=== PATIENT | male | born 1970 | race African-American/Black ===

== ENCOUNTER 2020-06-09 17:36 | Emergency (ER) | payer BC ==
[~2020-06-09] VITALS: Ht 188 cm; Wt 108.7 kg
--- NOTE | 2020-06-09 17:41 | PHYS DOC ---
Past History Past Medical History: High Cholesterol, Hypertension General Adult HPI: HPI: ".. I ve not been feeling well the last few days... cough, short of breath, fevers, chills.. I hurt all over like flu...I got this abdomen pain.. too.. had it off and on the past couple months.. my doctor thinks I got gastritis...or something.. that maybe need a scope.. 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 Cover mainly the local area.. but to make it [place] far [place] as [facility].. " Patient is a 50 year old male who presents with above hx complaints upper epigastric, myalgia, arthralgia, malaise, cough, dyspnea, fever and chills the last few days. Has had interment abdomen pain felt to be gastritis by primary physician. No tx trauma. No history of specific ill contacts but does travel extensively in the [facility] area where he drives a truck for [employer]. Patient does have a history of hypertension elevated cholesterol. Does not get a flu shot every year. No specific history immunosuppression. Normally follows with , of ,[place]. Review of Systems: Review of Systems: Constitutional: Complains of fever or chills Eyes: Denies change in visual acuity HENT: Complains of nasal congestion or sore throat Respiratory: Complains of cough or shortness of breath Cardiovascular: Complains of chest pain. Denies edema GI: Complains of epigastric abdominal pain, nausea,. Denies vomiting, bloody stools or diarrhea : Denies dysuria Musculoskeletal: Complains of generalized upper body myalgia, back pain and joint pain Integument: Denies rash Neurologic: Denies headache, focal weakness or sensory changes Endocrine: Denies polyuria or polydipsia Lymphatic: Denies swollen glands Psychiatric: Denies depression or anxiety Heart Score: HEART Score for Chest Pain: HEART Score for Chest Pain Response (Comments) Value History Slighlty/Non-Suspicious 0 ECG Normal 0 Age >45 - < 65 1 Risk Factors 1 or 2 Risk Factors 1 Troponin < Normal Limit 0 Total 2 Risk Factors: Risk Factors: DM, Current or recent (<one month) smoker, HTN, HLP, family history of CAD, obesity. Risk Scores: Score 0 - 3: 2.5% MACE over next 6 weeks - Discharge Home Score 4 - 6: 20.3% MACE over next 6 weeks - Admit for Clinical Observation Score 7 - 10: 72.7% MACE over next 6 weeks - Early Invasive Strategies Family History: Family History: Noncontributory Current Medications: Current Meds: See nursing for home meds Allergies: Allergies: Allergic to penicillin Physical Exam: PE: Constitutional: Moderate acute distress, non-toxic appearance. [] HENT: Normocephalic, atraumatic, bilateral external ears normal, oropharynx moist, no oral exudates, nose swollen turbinates and clear rhinorrhea Eyes: PERRLA, EOMI, conjunctiva normal, no discharge. [] Neck: Normal range of motion, no tenderness, supple, no stridor. [] Cardiovascular:Heart rate regular rhythm, no murmur. PMI slightly to the left Lungs & Thorax: Bilateral breath sounds equal at apex on auscultation [] Abdomen: Bowel sounds normal, soft, upper epigastric tenderness, no masses, no pulsatile masses. Declines rectal exam at this time. No hx of tarry stools. Skin: Warm, dry, no erythema, no rash. [] Back: No tenderness, no CVA tenderness. [] Extremities: No tenderness, no cyanosis, no clubbing, ROM intact, no edema. No cording appreciated Neurologic: Alert and oriented X 3, normal motor function, normal sensory function, no focal deficits noted. [] Psychologic: Affect anxious , judgement normal, mood normal. [] EKG: EKG: My interpretation EKG shows a sinus rhythm at 64 bpm. No findings of acute STEMI of contralateral changes. [] Radiology/Procedures: Radiology/Procedures: [address] [address] IMAGING REPORT Signed PATIENT: YUVAL LAZARO ACCOUNT: [id number] : 1970 LOCATION: ER AGE: 50 SEX: M EXAM STATUS: REG ER ORD. PHYSICIAN: GINETTE SEGOVIA MD REASON: OMNI 350,85ML IV.CHEST PAIN, DYSPNEA, COUGH.NO INJURY OR SX PROCEDURE: CT ANGIOGRAPHY CHEST CT ANGIOGRAPHY CHEST History: Chest pain. Dyspnea. Technique: CT of the chest was performed with intravenous contrast. PE protocol. Maximum intensity projection coronal and sagittal reconstructions were performed. Exposure: One or more of the following individualized dose reduction techniques were utilized for this examination: 1. Automated exposure control 2. Adjustment of the mA and/or kV according to patient size 3. Use of iterative reconstruction technique. Comparison: None Findings: Chest: No pulmonary emboli although evaluation is mildly degraded by respiratory motion within the bilateral lower lobes and contrast timing overall. No aortic aneurysm or dissection. No pathologic lymphadenopathy. No consolidation or pleural effusion. Calcified left lower lobe pulmonary nodule, likely prior granulous disease. 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 Impression: 1. No pulmonary embolism allowing for motion and contrast timing degradation. 2. Focal dissection within the celiac artery. No occlusion. Electronically signed by: Thomas Palm DO (06/09/2020 10:40 PM) [facility] DICTATED AND SIGNED BY: THOMAS PALM DO DATE: 06/09/202239 CC: GINETTE SEGOVIA MD; PCP,NO ~ [][place] [address] IMAGING REPORT Signed PATIENT: YUVAL LAZARO ACCOUNT: [id number] : 1970 LOCATION: ER AGE: 50 SEX: M EXAM STATUS: REG ER ORD. PHYSICIAN: GINETTE SEGOVIA MD REASON: cough,fever,dyspnea PROCEDURE: PORTABLE CHEST 1V PORTABLE CHEST 1V History: Reason: cough,fever,dyspnea / Spl. Instructions: / History: Comparison: None. Findings: No consolidation or pleural effusion. Normal heart size. No pneumothorax. Impression: 1. No acute cardiopulmonary process. Electronically signed by: Thomas Palm DO (06/09/2020 7:42 PM) [facility] DI[facility]ATED AND SIGNED BY: THOMAS PALM DO DATE: 06/09/201941 CC: GINETTE SEGOVIA MD; PCP,NO ~ Course & Med Decision Making: Course & Med Decision Making Pertinent Labs and Imaging studies reviewed. (See chart for details) Discussed presentation, testing and tx. plan with Dr. Scruggs. Plan transfer to [facility] for possible GI , Vascular or Procedural Radiology to evaluate the celiac artery dissection without thrombus. COVID ordered in event possible surgical intervention and symptoms. Impression: 1. Cough, Fever, myalgia, arthralgia malaise-viral syndrome 2. Abdomen pain 3. 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 Chest Pain 6. Hypernatremia 146 [] Dragon Disclaimer: Dragon Disclaimer: This electronic medical record was generated, in whole or in part, using a voice recognition dictation system. Departure Departure: Disposition: 01 HOME/RESIDENCE PRIOR TO ADM Condition: STABLE Referrals: PCP,NO (PCP) Justification of Admission: Justification of Admission: Justification of Admission Dx: Yes Comments: Celiac artery dissection Dragon Disclaimer This chart was dictated in whole or in part using Voice Recognition software in a busy, high-work load, and often noisy Emergency Department environment. It may contain unintended and wholly unrecognized errors or omissions. Dragon Disclaimer This chart was dictated in whole or in part using Voice Recognition software in a busy, high-work load, and often noisy Emergency Department environment. It may contain unintended and wholly unrecognized errors or omissions. Dragon Disclaimer This chart was dictated in whole or in part using Voice Recognition software in a busy, high-work load, and often noisy Emergency Department environment. It may contain unintended and wholly unrecognized errors or omissions. GINETTE SEGOVIA MD Jun 09, 2020 17:41
--- NOTE | 2020-06-09 18:01 | EKG ---
[address] [address] Test Date: 2020-06-09 Test Time: 17:55:53 Pat Name: YUVAL LAZARO Department: Room: Gender: M Manager Architecture: JAMI : 1970 Requested By: GINETTE SEGOVIA Order Number: [id number] Reading MD: Measurements Intervals Drake Rate: 64 P: 28 MT: 176 QRS: 4 QRSD: 86 T: 9 QT: 382 QTc: 398 Interpretive Statements SINUS RHYTHM NO SPECIFIC ECG ABNORMALITIES RI6.02 No previous ECG available for comparison
[2020-06-09 18:40] LABS: BASO # 0.1 x10^3/uL (0.0-0.2); BASO % 1 % (0-3); EOS # 0.2 x10^3/uL (0.0-0.7); EOS % 2 % (0-3); HEMATOCRIT 43.4 % (39.0-53.0); HEMOGLOBIN 14.7 g/dL (13.0-17.5); LYMPH # 3.3 x10^3/uL (1.0-4.8); LYMPH % 39 % (24-48); MEAN CORPUSCULAR HEMOGLOBIN 28 pg (25-35); MEAN CORPUSCULAR HGB CONC 34 g/dL (31-37); MEAN CORPUSCULAR VOLUME 83 fL (79-100); MONO # 0.8 x10^3/uL (0.0-1.1); MONO % 10 % (0-9); NEUT % 48 % (31-73); PLATELET COUNT 222 x10^3/uL (140-400); RED BLOOD COUNT 5.25 x10^6/uL (4.30-5.70); RED CELL DISTRIBUTION WIDTH 14.8 % (11.5-14.5); WHITE BLOOD COUNT 8.3 x10^3/uL (4.0-11.0)
[2020-06-09 18:48] LABS: BARBITURATES NEG (NEG); BENZODIAZEPINES NEG (NEG); CANNABINOIDS POS (NEG); COCAINE NEG (NEG); METHADONE NEG (NEG); OPIATES NEG (NEG); PHENCYCLIDINE NEG (NEG)
[2020-06-09 18:51] LABS: BACTERIA,URINE 0 /HPF (0-FEW); BILIRUBIN,URINE NEG (NEG); CLARITY,URINE CLEAR; COLOR,URINE YELLOW; GLUCOSE,URINE NEG (NEG); NITRITE,URINE NEG (NEG); RBC,URINE 0 /HPF (0-2); UROBILINOGEN,URINE 0.2 mg/dL (0.2 mg/dL); WBC,URINE 0 /HPF (0-4)
[2020-06-09 18:52] LABS: AMPHETAMINE/METHAMPHETAMINE NEG (NEG)
[2020-06-09 19:38] LABS: INFLUENZA A PATIENT NEGATIVE (NEGATIVE); INFLUENZA B PATIENT NEGATIVE (NEGATIVE)
--- NOTE | 2020-06-09 19:45 | RAD ---
PORTABLE CHEST 1V History: Reason: cough,fever,dyspnea / Spl. Instructions: / History: Comparison: None. Findings: No consolidation or pleural effusion. Normal heart size. No pneumothorax. Impression: 1. No acute cardiopulmonary process. Electronically signed by: Thomas Palm DO (06/09/2020 7:42 PM) [facility]
[2020-06-09] MEDS ORDERED: ALBUTEROL SULFATE 8GM INHALER. INH ONE (21:00)
[2020-06-09 21:07] LABS: CREATININE 1.3 mg/dL (0.7-1.3); GFR 70.7; POTASSIUM 3.5 mmol/L (3.5-5.1)
[2020-06-09] MEDS ORDERED: CONTRAST GIVEN. MC PRN (21:45)
[2020-06-09] MEDS ORDERED: IOHEXOL 350 MG/ML 100 ML VIAL. IV ONE (22:00)
[2020-06-09] MEDS ORDERED: IV RINGERS SOLUTION,LACTATED 1,000 ML IV ONE (22:30)
--- NOTE | 2020-06-09 22:43 | RAD ---
CT ANGIOGRAPHY CHEST History: Chest pain. Dyspnea. Technique: CT of the chest was performed with intravenous contrast. PE protocol. Maximum intensity projection coronal and sagittal reconstructions were performed. Exposure: One or more of the following individualized dose reduction techniques were utilized for this examination: 1. Automated exposure control 2. Adjustment of the mA and/or kV according to patient size 3. Use of iterative reconstruction technique. Comparison: None Findings: Chest: No pulmonary emboli although evaluation is mildly degraded by respiratory motion within the bilateral lower lobes and contrast timing overall. No aortic aneurysm or dissection. No pathologic lymphadenopathy. No consolidation or pleural effusion. Calcified left lower lobe pulmonary nodule, likely prior granulous disease. 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 Impression: 1. No pulmonary embolism allowing for motion and contrast timing degradation. 2. Focal dissection within the celiac artery. No occlusion. Electronically signed by: Thomas Palm DO (06/09/2020 10:40 PM) [facility]
[2020-06-09] MEDS ORDERED: LABETALOL 20 MG/4 ML DISP.SYRIN. IVP ONE (23:15)
[2020-06-10 00:33] VITALS: BP 139/81
[2020-06-10 06:20] LABS: AMYLASE 25 U/L (25-115); LIPASE 112 U/L (73-393)
== END 2020-06-10 01:10 | disposition short-term general hospital (02) ==
LOC: ER 17:36
DX: B34.9 Viral infection, unspecified (principal); R10.13 Epigastric pain; I10 Essential (primary) hypertension; I77.4 Celiac artery compression syndrome; I77.79 Dissection of other specified artery; R07.9 Chest pain, unspecified; E87.0 Hyperosmolality and hypernatremia; E78.00 Pure hypercholesterolemia, unspecified; Z20.828 Contact with and (suspected) exposure to other viral communicable diseases; Z88.0 Allergy status to penicillin
CPT/HCPCS: 36415; 71045; 71275; 80048; 80307; 81001; 82150; 82550; 83690; 83735; 83880; 84443; 84484; 85025; 85379; 85610; 85730; 87070; 87804; 87880; 93005; 94640; 96361; 96374; 99285; J3490; J7120; J7613; Q9967; U0003; 94664